=== PATIENT | female | born 1995 | race African-American/Black ===

== ENCOUNTER 2021-04-04 06:02 | Emergency (ER) | payer SELFPAY ==
[2021-04-04 15:24] LABS: SARS-CoV-2 PCR by NAA Not Detected (NotDetected)
== END 2021-04-04 08:03 | disposition home or self-care (01) ==
LOC: ERS 06:02
DX: J06.9 Acute upper respiratory infection, unspecified (principal); Z20.822 Contact with and (suspected) exposure to COVID-19; F17.210 Nicotine dependence, cigarettes, uncomplicated
CPT/HCPCS: 87804; 99283; U0003; U0005